=== PATIENT | male | born 1970 | race Caucasian/White ===

== ENCOUNTER 2019-01-09 08:13 | Day surgery (SDC) | payer OTHER ==
[~2019-01-09] VITALS: Ht 182.9 cm; Wt 115.9 kg
[~2019-01-09 08:13] MED LIST: ASCO500 PO; CRUTCH4 USE; DEXA4 PO; FLUC200 PO; Flomax0.4 MG PO; HYDACE5 PO; NAPR220 PO; Norco 5-325 Ta1 EACH PO; PROC10 PO; PROM25; PROM25 PO; PROM6.25SY PO; Senna8.6 MG PO; Silvadene20 GM TOP; VICODIN ES 7.51 EACH PO; Zofran Odt4 MG PO; Zofran8 MG PO
== END 2019-01-09 10:21 | disposition home or self-care (01) ==
LOC: ORSCSDS 08:13
PROVIDERS: Student in an Organized Health Care Education/Training Program
PROC: 0DBP8ZX Excision of Rectum, Via Natural or Artificial Opening Endoscopic, Diagnostic (ICD-10-PCS; principal; 2019-01-09 09:30)
DX: Z12.11 Encounter for screening for malignant neoplasm of colon (principal); D12.8 Benign neoplasm of rectum; Z85.89 Personal history of malignant neoplasm of other organs and systems
CPT/HCPCS: 88305; J2704; J7120

== ENCOUNTER 2024-12-31 13:49 | Observation (INO) | payer OTHER ==
[~2024-12-31] VITALS: Ht 182.9 cm; Wt 109.0 kg
[2024-12-31 14:30] LABS: BASOPHILS ABSOLUTE AUTO 0.05 K/mm3 (0.00-0.23); BASOPHILS PERCENT AUTO 0 % (0-2); EOSINOPHILS ABSOLUTE AUTO 0.01 K/mm3 (0.00-0.68); EOSINOPHILS PERCENT AUTO 0 % (0-6); Hematocrit 52.3 % (37.0-53.0); Hemoglobin 17.9 g/dL (13.5-17.5); IMMATURE GRAN ABSOLUTE AUTO 0.03 K/mm3 (0.00-0.10); IMMATURE GRAN PERCENT AUTO 0 % (0-1); LYMPHOCYTES PERCENT AUTO 9 % (21-46); MONOCYTES ABSOLUTE AUTO 0.42 K/mm3 (0.16-1.47); MONOCYTES PERCENT AUTO 3 % (4-13); Mean Corpuscular HGB 29.4 pg (26.0-34.0); Mean Corpuscular HGB Conc 34.2 g/dL (31.5-36.5); Mean Corpuscular Volume 86 fL (80-100); Mean Platelet Volume 10.1 fL (9.1-12.4); NEUTROPHILS PERCENT AUTO 87 % (41-73); Platelet Count 229 K/mm3 (150-400); RDW Standard Deviation 40.4 fL (35.1-46.3); Red Blood Cell Count 6.08 M/mm3 (4.30-5.90); White Blood Cell Count 12.61 K/mm3 (4.00-11.30)
[2024-12-31 14:57] LABS: Albumin, Blood 4.2 g/dL (3.4-5.0); Albumin/Globulin Ratio 1.4 (0.8-1.8); Bilirubin, Total 0.6 mg/dL (0.1-1.0); Calcium, Blood 10.3 mg/dL (8.5-10.1); Creatinine, Blood 1.21 mg/dL (0.60-1.20); Globulin, Blood 3.1 g/dL (2.2-4.0); Potassium, Blood 3.5 mmol/L (3.5-5.5); Total Protein, Blood 7.3 g/dL (6.4-8.2)
[2024-12-31 15:21] LABS: Influenza A, PCR NEGATIVE (NEGATIVE); Influenza B, PCR NEGATIVE (NEGATIVE); Resp Syncytial Virus, PCR NEGATIVE (NEGATIVE); SARS-Cov-2 (COVID-19) PCR, MMC NEGATIVE (NEGATIVE)
[2024-12-31] MEDS ORDERED: NS 1,000 ML IV SCH (15:30)
[2024-12-31] MEDS ORDERED: HYDROmorphone HCl/Pf 1MG SYR IV ONE (15:30)
[2024-12-31] MEDS ORDERED: Metoclopramide HCl 5MG / ML 2ML Vial IV PRN (19:15)
[2024-12-31] MEDS ORDERED: HYDROmorphone HCl/Pf 1MG SYR IV PRN (19:15)
[2024-12-31] MEDS ORDERED: OxyCODONE HCL 5 MG TAB PO PRN (19:15)
[2024-12-31] MEDS ORDERED: Acetaminophen 325 MG TABLET PO PRN (19:20)
[2024-12-31] MEDS ORDERED: Ampicillin Sod/Sulbactam Sod 1.5 GM in NS 100 ML IV ONE (19:20)
[2024-12-31 19:57] LABS: Source, Urine Clean Catch
[2024-12-31 20:05] LABS: Appearance, Urine Clear (Clear); Bilirubin, Urine Neg (Neg); Blood, Urine Neg (Neg); Glucose Qualitative, Urine Neg (Neg); Ketones, Urine 2+ (Neg); Leukocyte Esterase, Urine Neg (Neg); Nitrite, Urine Neg (Neg); Protein, Urine 1+ (Neg); Specific Gravity, Urine 1.015 (1.003-1.022); Urobilinogen, Urine NORM (Normal); pH, Urine 6.5 (5.0-8.0)
[2024-12-31 20:06] VITALS: BP 178/90
[2024-12-31 20:16] LABS: Color, Urine Pale Yellow (P-Yellow)
[2024-12-31] MEDS ORDERED: Lactated Ringer's 1,000 ML IV SCH (20:30)
[2024-12-31] MEDS ORDERED: HydrALAZINE HCl 20 MG / ML 1ML Vial IV PRN (20:30)
[2024-12-31] MEDS ORDERED: Lactobacil 2-S.Thermo-Bifido 1 1 Cap PO SCH (21:00)
[2025-01-01] VITALS (15 sets, daily range): BP systolic 121–184; BP diastolic 79–110
[2025-01-01] MEDS ORDERED: Ampicillin Sod/Sulbactam Sod 1.5 GM in NS 100 ML IV SCH (01:00)
--- NOTE | 2025-01-01 05:39 | NUR ---
SHIFT SUMMARY A/OX4, IND WITH AMBULATION. PG PLACED TO MARTY. C/O UPPER ABD PAIN, MEDICATED WITH PRN DILAUDID. DENIES N/V. NPO SINCE MIDNIGHT. NO ACUTE CHANGES
[2025-01-01 05:53] LABS: BASOPHILS ABSOLUTE AUTO 0.02 K/mm3 (0.00-0.23); BASOPHILS PERCENT AUTO 0 % (0-2); EOSINOPHILS ABSOLUTE AUTO 0.06 K/mm3 (0.00-0.68); EOSINOPHILS PERCENT AUTO 1 % (0-6); Hemoglobin 15.6 g/dL (13.5-17.5); IMMATURE GRAN ABSOLUTE AUTO 0.03 K/mm3 (0.00-0.10); IMMATURE GRAN PERCENT AUTO 0 % (0-1); LYMPHOCYTES PERCENT AUTO 11 % (21-46); MONOCYTES ABSOLUTE AUTO 0.92 K/mm3 (0.16-1.47); MONOCYTES PERCENT AUTO 8 % (4-13); Mean Corpuscular HGB 29.4 pg (26.0-34.0); Mean Corpuscular HGB Conc 33.9 g/dL (31.5-36.5); Mean Corpuscular Volume 87 fL (80-100); Mean Platelet Volume 10.1 fL (9.1-12.4); NEUTROPHILS PERCENT AUTO 80 % (41-73); Platelet Count 198 K/mm3 (150-400); RDW Coefficient Variation 13.3 % (11.7-14.2); RDW Standard Deviation 42.1 fL (35.1-46.3); Red Blood Cell Count 5.31 M/mm3 (4.30-5.90); White Blood Cell Count 11.63 K/mm3 (4.00-11.30)
[2025-01-01 06:20] LABS: Albumin, Blood 3.4 g/dL (3.4-5.0); Albumin/Globulin Ratio 1.3 (0.8-1.8); Bun/Creatinine Ratio 12.1 (12.0-20.0); Calcium, Blood 8.7 mg/dL (8.5-10.1); Creatinine, Blood 1.07 mg/dL (0.60-1.20); Globulin, Blood 2.7 g/dL (2.2-4.0); Potassium, Blood 3.4 mmol/L (3.5-5.5); Total Protein, Blood 6.1 g/dL (6.4-8.2)
[2025-01-01] MEDS ORDERED: Ketorolac Tromethamine 15mg Vial IV PRN (09:00)
[2025-01-01] MEDS ORDERED: Indocyanine Green 25 MG Vial IV ONE (09:20)
[2025-01-01] MEDS ORDERED: Lactated Ringer's 1,000 ML IV SCH (09:45)
--- NOTE | 2025-01-01 13:05 | NUR ---
TO DAY SURGERY VIA WC
[2025-01-01] MEDS ORDERED: Bupivacaine 0.25% Epi 1:200000 30 ML Vial ONE (13:18)
[2025-01-01] MEDS ORDERED: Lactated Ringer's 1,000 ML IV ONE (13:18)
[2025-01-01] MEDS ORDERED: Metoclopramide HCl 5MG / ML 2ML Vial ONE ×2 (13:26→14:05)
[2025-01-01] MEDS ORDERED: Ketorolac Tromethamine 30mg Vial ONE ×2 (13:26→14:05)
[2025-01-01] MEDS ORDERED: FentaNYL Citrate 50 MCG/ML 5 ML Injection ONE (13:26)
[2025-01-01] MEDS ORDERED: Rocuronium Bromide 10 MG/ML 5ML Injection IV ONE ×3 (13:26→16:23)
[2025-01-01] MEDS ORDERED: propofoL 20 ML IV ONE (13:26)
[2025-01-01] MEDS ORDERED: Dexamethasone Sod Phos 10 MG/ML 1ML VIAL ONE ×2 (13:26→14:05)
[2025-01-01] MEDS ORDERED: HYDROmorphone HCl/Pf 1MG SYR ONE ×2 (14:52→16:23)
[2025-01-01] MEDS ORDERED: Sugammadex Sodium 200 MG/2ML SDV (100 MG/ML) ONE (17:26)
[2025-01-01] MEDS ORDERED: HYDROmorphone HCl/Pf 1MG SYR IV PRN (17:40)
[2025-01-01] MEDS ORDERED: FentaNYL Citrate 50 MCG/ML 2 ML Injection IV PRN ×3 (17:40)
[2025-01-01] MEDS ORDERED: Metoclopramide HCl 5MG / ML 2ML Vial IV PRN (17:40)
[2025-01-01] MEDS ORDERED: Ondansetron HCl 2 MG / ML 2ML Vial IV PRN (17:40)
[2025-01-01] MEDS ORDERED: Naloxone HCl 0.4MG / ML 1ML Vial ONE (17:52)
--- NOTE | 2025-01-01 18:54 | NUR ---
POST OP ARRIVAL TO SURGICAL FLOOR LAP SITES x4 COVERED w/WOUND GLUE ABDOMEN SOFT. INCISION SITES WNL. VSS. ALERT AND ORIENTED x4. LUNG SOUNDS WNL. SCD'S ON. DENIES NAUSEA. ICE WATER GIVEN. RESTING IN BED w/ FAMILY AT BEDSIDE.
[2025-01-01] MEDS ORDERED: Naloxone HCl 0.4MG / ML 1ML Vial IV SCH (19:40)
[2025-01-02 00:11] VITALS: BP 107/61
[2025-01-02 05:11] VITALS: BP 116/76
--- NOTE | 2025-01-02 05:54 | NUR ---
SHIFT SUMMARY: POD #1 FOR MARIANNE WITH LAP SITES X4, CDI WITH SKIN GLUE. PT AMBULATING INDEPENDENTLY. POWERGLIDE TO MARTY THAT FLUSHES WELL BUT HAS NO BLOOD RETURN. LABS DRAWN BY PHLEBOTOMY STAFF. PT TOLERATING CRACKERS AND WATER INTAKE WITH NO COMPLAINTS OF NAUSEA. NO ACUTE CHANGES DURING SHIFT.
[2025-01-02 06:02] LABS: Hematocrit 47.7 % (37.0-53.0); Hemoglobin 16.1 g/dL (13.5-17.5); Mean Corpuscular HGB 29.8 pg (26.0-34.0); Mean Corpuscular HGB Conc 33.8 g/dL (31.5-36.5); Mean Corpuscular Volume 88 fL (80-100); Platelet Count 197 K/mm3 (150-400); RDW Coefficient Variation 13.3 % (11.7-14.2); RDW Standard Deviation 43.2 fL (35.1-46.3)
[2025-01-02 06:22] LABS: Calcium, Blood 8.5 mg/dL (8.5-10.1); Creatinine, Blood 1.33 mg/dL (0.60-1.20); Potassium, Blood 3.8 mmol/L (3.5-5.5)
[2025-01-02 07:06] VITALS: BP 103/74
[2025-01-02] MEDS ORDERED: Acetaminophen325 M1 PO (10:16)
--- NOTE | 2025-01-02 10:24 | NUR ---
DISCHARGE SUMMARY POST OP DAY 1 LAP MARIANNE. LAP SITES x3; WNL. VSS. TOLERATING REGULAR DIET WELL. PAIN CONTROLLED WELL. VOIDED SUCCESSFULLY. PLAN TO DISCUSS DC INFORMATION AND WAIT FOR RIDE.
--- NOTE | 2025-01-02 10:47 | NUR ---
DISCHARGE ESCORTED OUT VIA WC
== END 2025-01-02 11:35 | disposition home or self-care (01) ==
LOC: ER 13:49 → SURS 13:50 → ERHOLD 13:50 → SURS 19:48
PROVIDERS: Internal Medicine; Physician Assistant; Student in an Organized Health Care Education/Training Program; Surgery; ADMIT Family Medicine
PROC: 0FT44ZZ Resection of Gallbladder, Percutaneous Endoscopic Approach (ICD-10-PCS; principal; 2025-01-01 13:30)
PROC: 8E0W4CZ Robotic Assisted Procedure of Trunk Region, Percutaneous Endoscopic Approach (ICD-10-PCS; principal; 2025-01-01 13:30)
DX: K81.2 Acute cholecystitis with chronic cholecystitis (principal); K76.0 Fatty (change of) liver, not elsewhere classified; E87.21 Acute metabolic acidosis; R65.10 Systemic inflammatory response syndrome (SIRS) of non-infectious origin without acute organ dysfunction; Z88.8 Allergy status to other drugs, medicaments and biological substances
CPT/HCPCS: 0241U; 36415; 74177; 74300; 76705; 80048; 80053; 83605; 83690; 84484; 85025; 85027; 87040; 88304; 93005; 93010; 96365; 96366; 96375; 96376; 99285-25; A9270; C1751; C1894; G0378; J0295; J1100; J1171; J1885; J2310; J2704; J2765; J3010; J7030; J7120; Q9967